=== PATIENT | female | born 1985 | race African-American/Black ===

== ENCOUNTER 2023-02-15 13:09 | Emergency (ER) | payer MEDICAID ==
[~2023-02-15] VITALS: Ht 167.6 cm; Wt 81.0 kg
[2023-02-15 13:24] VITALS: BP 127/79; PULSE 86; RESP 20; TEMP 98.2; O2SAT 100
[2023-02-15] MEDS ORDERED: OCUFLX RIGHTEYE (14:51)
== END 2023-02-15 15:12 | disposition home or self-care (01) ==
LOC: ER 13:09
DX: H10.9 Unspecified conjunctivitis (principal)
CPT/HCPCS: 99281

== ENCOUNTER 2024-03-03 20:31 | Emergency (ER) | payer MEDICAID, OTHER ==
[~2024-03-03] VITALS: Ht 162.6 cm; Wt 91.0 kg
[~2024-03-03 20:31] MED LIST: OCUFLX RIGHTEYE
[2024-03-03 20:41] VITALS: O2SAT 100
[2024-03-03 20:47] VITALS: BP 135/84; PULSE 74; TEMP 97.6; O2SAT 100
[2024-03-03 21:56] LABS: CHLORIDE 108 mEq/L (98-107); POTASSIUM 3.7 mEq/L (3.5-5.1); SODIUM 139 mEq/L (136-145)
[2024-03-03 21:57] LABS: BASOPHILS % 0.4 % (0.0-2.0); CARBON DIOXIDE 25 mEq/L (21-32); EOSINOPHILS % 1.3 % (0.0-5.0); HEMATOCRIT. 37.2 % (36.0-48.0); HEMOGLOBIN. 11.9 g/dL (12.0-16.0); LYMPHOCYTES % 15.1 % (20.0-50.0); MEAN CORPUSCULAR HEMOGLOBIN 25.6 pg (28.0-32.0); MEAN CORPUSCULAR HGB CONC 31.9 g/dL (31.0-37.0); MEAN CORPUSCULAR VOLUME 80.2 fL (81.0-99.0); MONOCYTES % 4.2 % (2.0-8.0); PLATELET 237 x1000/uL (130-400); RED BLOOD CELL COUNT 4.64 mill/uL (4.2-5.4); RED CELL DISTRIBUTION WIDTH 16.9 % (11.6-14.6); WHITE BLOOD COUNT 10.1 x1000/uL (4.5-11.0)
[2024-03-03 21:58] LABS: CALCIUM 9.1 mg/dL (8.7-10.4)
[2024-03-03 22:02] LABS: CREATININE 0.8 mg/dL (0.6-1.0); GLUCOSE 106 mg/dL (70-105); UREA NITROGEN BLOOD 10 mg/dL (9-23)
[2024-03-03 22:04] LABS: ALANINE AMINOTRANSFERASE 12 IU/L (10-49); ALBUMIN 4.3 g/dL (3.2-4.8); ASPARTATE AMINOTRANSFERASE 15 IU/L (<34)
[2024-03-03 22:05] LABS: BILIRUBIN DIRECT 0.2 mg/dL (<=3.0); BILIRUBIN TOTAL 0.6 mg/dL (0.1-1.0); PROTEIN TOTAL 8.1 g/dL (6.0-8.3)
[2024-03-04] MEDS ORDERED: METOCLOPRAMIDE HCL 10MG/2ML VIAL IM ONE (00:15)
[2024-03-04] MEDS ORDERED: ACETAMINOPHEN 325MG TABLET PO ONE (00:15)
[2024-03-04 01:00] VITALS: RESP 17
[2024-03-04] MEDS: ACETAMINOPHEN 325MG TABLET PO NR (01:30)
[2024-03-04] MEDS: METOCLOPRAMIDE HCL 10MG/2ML VIAL IM NR (01:45)
== END 2024-03-04 01:47 | disposition home or self-care (01) ==
LOC: ER 20:31
DX: G43.909 Migraine, unspecified, not intractable, without status migrainosus (principal)
CPT/HCPCS: 99283; 80076; 80048; 83690; 85025; 86850; 86900; 86901; 36415; 96372; J2765